=== PATIENT | female | born 1965 | race African-American/Black ===

== ENCOUNTER 2017-07-31 19:31 | Emergency (ER) | payer SELFPAY ==
[2017-07-31 20:18] LABS: Bilirubin Negative (Negative); Blood, Urine Negative (Negative); Clarity CLEAR (Clear); Glucose, Urine (Dipstick) Negative (Negative); Leukocyte Small (Negative); Nitrite Negative (Negative); Protein, Urine (Dipstick) Negative (Neg-Trace); pH, Urine 6.5 (5.0-9.0)
[2017-07-31 20:23] LABS: Bacteria/HPF 1+ HPF (None Seen); Hyaline Casts/LPF 0-3 HYALINE CAST LPF (0-3 Hyaline); Pathc Cast-AUWi Flag 0.13 (0-2.49)
[2017-07-31 20:26] LABS: Pregnancy Test - Urine (BHCG) Negative (Negative); Pregu Control Background? CLEAR/WHITE (CLR/WHITE); Pregu Control Bar Appear? YES (CONTROL BAR)
--- NOTE | 2017-07-31 20:43 | RAD ---
PORTABLE CHEST ONE VIEW 07/31/17 at 8:44 p.m. HISTORY: Cough. FINDINGS: Comparison made with exam of 02/25/16. The heart size is normal. the lungs are expanded without focal areas of consolidation, pneumothorax or pleural effusions. IMPRESSION: No radiographic evidence of acute cardiopulmonary process. POS: [facility]
[2017-07-31] MEDS ORDERED: Ketorolac Tromethamine 60 MG/2 ML VIAL ONE (20:59)
== END 2017-07-31 21:25 | disposition home or self-care (01) ==
LOC: ERS 19:31
DX: R30.0 Dysuria (principal); R05 Cough; E66.9 Obesity, unspecified; M19.90 Unspecified osteoarthritis, unspecified site; J45.909 Unspecified asthma, uncomplicated; Z87.891 Personal history of nicotine dependence
CPT/HCPCS: 71045; 81001; 81025; 96372; J1885

== ENCOUNTER 2017-10-25 23:01 | Emergency (ER) | payer SELFPAY ==
[2017-10-26] MEDS ORDERED: Ketorolac Tromethamine 30 MG/ML VIAL ONE (00:07)
--- NOTE | 2017-10-26 07:37 | ULT ---
RIGHT LOWER EXTREMITY VENOUS DOPPLER WITH SPECTRAL ANALYSIS AND COLOR FLOW EVALUATION: Date: 10/25/17 HISTORY: Right knee and leg pain. TECHNIQUE: Norton scale, color flow, Doppler evaluation, and spectral analysis of the right lower extremity venous structures is performed with 2D imaging. The right lower extremity common femoral, superficial femor al, popliteal, posterior tibial, most proximal greater saphenous, and profunda femoral veins are imag ed. FINDINGS: There is normal lumen compressibility, flow, and augmentation in the visualized deep venous structure s of the right lower extremity. At the level of the knee, there is a curvilinear, anechoic area present in the superolateral aspect o f the knee, which may represent a small joint effusion. IMPRESSION: 1. No evidence of a deep venous thrombosis involving the visualized deep venous structures of the ri ght lower extremity. 2. Small right knee joint effusion. POS: [facility]
== END 2017-10-26 00:24 | disposition home or self-care (01) ==
LOC: ERS 23:01
DX: Z87.891 Personal history of nicotine dependence; E66.9 Obesity, unspecified; M25.461 Effusion, right knee; Z79.899 Other long term (current) drug therapy; J45.909 Unspecified asthma, uncomplicated
CPT/HCPCS: 96372; J1885

== ENCOUNTER 2020-02-02 18:11 | Emergency (ER) | payer SELFPAY ==
[2020-02-02] MEDS ORDERED: Ketorolac Tromethamine 30 MG/ML VIAL ONE (19:08)
[2020-02-02] MEDS ORDERED: Morphine 4 MG/ML VIAL ONE (19:08)
== END 2020-02-02 21:20 | disposition home or self-care (01) ==
LOC: ERS 18:11
DX: M54.5 Low back pain (principal); Z87.891 Personal history of nicotine dependence; E66.9 Obesity, unspecified; Z79.899 Other long term (current) drug therapy
CPT/HCPCS: 96372; 99283; J1885; J2270

== ENCOUNTER 2021-01-09 13:21 | Emergency (ER) | payer SELFPAY ==
[2021-01-09 19:15] LABS: SARS-CoV-2 PCR by NAA Not Detected (NotDetected)
== END 2021-01-09 14:52 | disposition home or self-care (01) ==
LOC: ERS 13:21
DX: Z20.822 Contact with and (suspected) exposure to COVID-19 (principal); E66.9 Obesity, unspecified; J45.909 Unspecified asthma, uncomplicated; Z87.891 Personal history of nicotine dependence
CPT/HCPCS: 99283; U0003; U0005

== ENCOUNTER 2022-05-24 08:49 | Emergency (ER) | payer OTHER ==
[2022-05-24 09:39] LABS: #Eosinphils 0.1 thou/uL (0.0-0.7); #Lymphocytes 1.2 thou/uL (1.20-3.40); #Monocytes 0.6 thou/uL (0.11-0.59); %Basophils 0.5 % (0.0-1.0); %Eosinophils 1.1 % (0.0-10.0); %Lymphocytes 13.5 % (21.0-51.0); %Monocytes 6.7 % (0.0-10.0); %Neutrophils 78.2 % (42.0-75.0); Hemoglobin 13.4 g/dL (12.0-16.0); Mean Corpuscular HGB CONC 32.9 g/dL (32.0-36.0); Mean Corpuscular Hemoglobin 31.3 pg (27.0-31.0); Mean Corpuscular Volume 95.4 fl (78.0-98.0); Mean Platelet Volume 7.1 fL (7.4-10.4); Platelet Count 417 thou/uL (130-400); RBC Distribution Width 12.3 % (11.5-14.5); Red Blood Cell (RBC) Count 4.28 mill/uL (4.20-5.40); White Blood Cell (WBC) Count 8.9 thou/uL (4.8-10.8)
[2022-05-24 09:42] LABS: ALT (SGPT) 15 U/L (8-55); AST (SGOT) 16 U/L (5-34); Albumin 3.8 g/dL (3.5-5.0); Alkaline Phosphatase 97 U/L (40-110); Anion Gap 10 mmol/L (10-20); BUN (Urea Nitrogen) 11 mg/dL (9.8-20.1); Bilirubin, Total 0.5 mg/dL (0.2-1.2); CK (CPK) 96 U/L (29-168); Calc. Creatinine Clearance 0 mL/min (70-130); Calcium 9.5 mg/dL (7.8-10.44); Carbon Dioxide 22 mmol/L (22-29); Chloride 112 mmol/L (98-107); Estimated GFR 77; Globulin 3.3 g/dL (2.4-3.5); Glucose 92 mg/dL (70-105); Lipase 19 U/L (8-78); Potassium 3.9 mmol/L (3.5-5.1); Protein, Total 7.1 g/dL (6.0-8.3); Sodium 140 mmol/L (136-145)
[2022-05-24] MEDS ORDERED: Iopamidol-370 76% 500 ML 1 ML ONE (10:13)
[2022-05-24 10:37] LABS: Bilirubin Negative (Negative); Blood, Urine 2+ (Negative); Glucose, Urine (Dipstick) Normal (Negative); Ketone, Urine Negative (Negative); Leukocyte 500 Leu/uL (Negative); Nitrite Negative (Negative); Protein, Urine (Dipstick) 20 mg/dL (Neg-Trace); Specific Gravity, Urine 1.014 (1.002-1.036); Urobilinogen Normal mg/dL (Less than 2); pH, Urine 6.5 (5.0-9.0)
[2022-05-24] MEDS ORDERED: Ketorolac Tromethamine 30 MG/ML VIAL ONE (10:43)
[2022-05-24 10:59] LABS: Bacteria/HPF 2+ HPF (None Seen)
[2022-05-24 11:00] LABS: Clarity Cloudy (Clear)
== END 2022-05-24 11:15 | disposition home or self-care (01) ==
LOC: ERS 08:49
DX: N20.0 Calculus of kidney (principal); Z87.891 Personal history of nicotine dependence
CPT/HCPCS: 36415; 74177; 80053; 81003; 81015; 82550; 83690; 85025; 96374; J1885; Q9967

== ENCOUNTER 2023-06-02 12:29 | Emergency (ER) | payer OTHER ==
[2023-06-02] MEDS ORDERED: Ketorolac Tromethamine 30 MG/ML VIAL ONE (13:40)
== END 2023-06-02 15:33 | disposition home or self-care (01) ==
LOC: ERS 12:29
DX: R07.81 Pleurodynia (principal); J45.909 Unspecified asthma, uncomplicated; Z87.891 Personal history of nicotine dependence; Z79.899 Other long term (current) drug therapy
CPT/HCPCS: 71045; 93005; 96372; J1885

== ENCOUNTER 2024-08-03 23:01 | Observation (INO) | payer OTHER ==
[2024-08-03] MEDS ORDERED: Ketorolac Tromethamine 30 MG (1 mL) VIAL ONE (23:30)
[2024-08-03 23:57] LABS: #Basophils 0.05 10x3/uL (0.0-0.2); %Basophils 0.9 % (0.0-1.0); %Eosinophils 5.3 % (0.0-10.0); %Lymphocytes 41.5 % (21.0-51.0); %Monocytes 8.8 % (0.0-10.0); %Neutrophils 43.3 % (42.0-75.0); Hematocrit 37.9 % (36.0-47.0); Hemoglobin 12.5 g/dL (12.0-16.0); Mean Corpuscular Hemoglobin 30.6 pg (27.0-31.0); Mean Corpuscular Volume 92.7 fL (78.0-98.0); Mean Platelet Volume 9.1 fL (7.4-10.4); Platelet Count 320 10x3/uL (130-400); RBC Distribution Width 13.2 % (11.5-14.5); Red Blood Cell (RBC) Count 4.09 mill/uL (4.20-5.40)
[2024-08-04 00:30] LABS: ALT (SGPT) 16 U/L (8-55); AST (SGOT) 18 U/L (5-34); Albumin 3.3 g/dL (3.5-5.0); Alkaline Phosphatase 115 U/L (40-110); Anion Gap 12 mmol/L (10-20); BUN (Urea Nitrogen) 10 mg/dL (9.8-20.1); Bilirubin, Total 0.2 mg/dL (0.2-1.2); Calc. Creatinine Clearance 0 mL/min (70-130); Carbon Dioxide 20 mmol/L (22-29); Chloride 114 mmol/L (98-107); Estimated GFR 97; Globulin 3.8 g/dL (2.4-3.5); Glucose 97 mg/dL (70-105); Potassium 4.1 mmol/L (3.5-5.1); Protein, Total 7.1 g/dL (6.0-8.3); Sodium 142 mmol/L (136-145)
[2024-08-04 00:35] LABS: Troponin I Less than 0.010 ng/mL (< 0.028)
[2024-08-04] MEDS ORDERED: Ipratropium/Albuterol 3 ML NEB ONE (03:43)
[2024-08-04 03:54] LABS: INR-International Normal Ratio 0.9; PTT 30.9 sec (22.9-36.1); Prothrombin Time 12.4 sec (12.0-14.7)
[2024-08-04 03:59] LABS: Troponin I Less than 0.010 ng/mL (< 0.028)
[2024-08-04] MEDS ORDERED: Acetaminophen 325 MG TAB PO PRN (04:08)
[2024-08-04] MEDS ORDERED: Senokot S 8.6-50 MG TAB PO PRN (04:08)
[2024-08-04] MEDS ORDERED: Ondansetron PF 4 MG/2 ML Vial IVP PRN (04:08)
[2024-08-04] MEDS ORDERED: Calcium Carbonate 500 MG ChewTAB PO PRN (04:08)
[2024-08-04] MEDS ORDERED: Heparin 25,000 units/D5W 500 ML IVPB SCH (04:15)
[2024-08-04] MEDS ORDERED: Heparin 10,000 UNITS/ 10 ML VIAL SLOW IVP SCH (04:15)
[2024-08-04 05:40] VITALS: BMI 49.9
[2024-08-04] MEDS: Mometasone 200 MCG/Formoterol 5 MCG 120 PUFF INHALER INH SCH (07:37)
[2024-08-04] MEDS: Ipratropium/Albuterol 3 ML NEB NEB SCH (07:40)
[2024-08-04 08:13] LABS: Hemoglobin 13.6 g/dL (12.0-16.0); Platelet Count 367 10x3/uL (130-400)
[2024-08-04 08:22] LABS: PTT Greater than 250.0 sec (22.9-36.1)
[2024-08-04] MEDS: predniSONE 20 MG TAB PO SCH (09:00)
[2024-08-04] MEDS: Pantoprazole 40 MG DR.TAB PO SCH (09:00)
[2024-08-04] MEDS ORDERED: Iopamidol-370 76% 500 ML MDV (1 ML CHARGE) ONE (09:10)
[2024-08-04] MEDS: Apixaban 5 MG TAB PO SCH (14:50)
[2024-08-04] MEDS: Ipratropium/Albuterol 3 ML NEB NEB PRN (17:11)
[2024-08-05 08:15] VITALS: BP 163/88; TEMP 97.7
[2024-08-05] MEDS ORDERED: Apixaban 5 MG TAB PO SCH ×2 (09:00→21:00)
== END 2024-08-05 10:18 | disposition home or self-care (01) ==
LOC: ERS 23:01 → ERHOLD 08-04 04:02 → OBS 08-04 04:55 → PCU 08-04 05:13
PROVIDERS: ADMIT Student in an Organized Health Care Education/Training Program; ATTEND Internal Medicine
PROC: B24BZZZ Ultrasonography of Heart with Aorta (ICD-10-PCS; principal; 2024-08-04)
DX: I26.99 Other pulmonary embolism without acute cor pulmonale (principal); J45.31 Mild persistent asthma with (acute) exacerbation; M19.019 Primary osteoarthritis, unspecified shoulder; Z87.891 Personal history of nicotine dependence; Z88.8 Allergy status to other drugs, medicaments and biological substances; Z88.5 Allergy status to narcotic agent; Z79.51 Long term (current) use of inhaled steroids; Z79.01 Long term (current) use of anticoagulants; Z79.899 Other long term (current) drug therapy
CPT/HCPCS: 36415; 71045; 71275; 80053; 83735; 83880; 84484; 85014; 85018; 85025; 85049; 85379; 87428; 93005; 93306; 93970; 94640; 96365; 96366; 96368; 96375; J1885; J7512; J7620; Q9967

== ENCOUNTER 2025-03-10 09:30 | Emergency (ER) | payer OTHER | END 2025-03-10 12:05 | disposition home or self-care (01) | LOC: ERS 09:30 | DX: J04.0 Acute laryngitis (principal); M17.12 Unilateral primary osteoarthritis, left knee; M19.012 Primary osteoarthritis, left shoulder; M47.9 Spondylosis, unspecified; J45.909 Unspecified asthma, uncomplicated; Z87.891 Personal history of nicotine dependence; Z79.51 Long term (current) use of inhaled steroids | CPT/HCPCS: 99283 ==